=== PATIENT | male | born 1970 | race Caucasian/White ===

== ENCOUNTER → 2017-07-08 | Outpatient (CLI) | payer OTHER ==
[~2017-07-08] MED LIST: IOPAMIDOL (ISOVUE-300) 100 ML BTL ONE
== END ==
LOC: CIMAGING 08:26
PROVIDERS: ATTEND Family Medicine
DX: G44.82 Headache associated with sexual activity (principal); J34.89 Other specified disorders of nose and nasal sinuses
CPT/HCPCS: 70470-PO; Q9967